=== PATIENT | male | born 1990 | race Caucasian/White ===

== ENCOUNTER 2023-06-20 16:42 | Emergency (ER) | payer OTHER, SELFPAY ==
[2023-06-20 17:04] VITALS: BP 122/76; PULSE 86; RESP 16; TEMP 36.8; O2SAT 98; BMI 28.3
--- NOTE | 2023-06-20 17:23 | PC.NURSE ---
R lower tooth broken for 6 months -- R lower jaw swelling last 1-2 weeks with some ear pain. denies any drainage in moutht or foul taste
[2023-06-20] MEDS: TRAMADOL HCL 50 MG TABLET PO (17:50)
[2023-06-20] MEDS: CLINDAMYCIN HCL 150 MG CAPSULE 450 MG PO (17:50)
--- NOTE | 2023-06-20 17:58 | ED_ITS ---
HPI - Dental/Oral General Chief complaint: Dental/Oral Stated complaint: DENTAL PAIN Time Seen by Provider: 06/20/23 17:30 Source: patient Mode of arrival: walk-in Limitations: no limitations History of Present Illness HPI Narrative: pt presents emergency department complaining of right jaw swelling. Patient states his had poor dentition for several months. He started having right lower molar tooth # 30-31 pain. He was taking amoxicillin 2 times a day that he had left over from previously and yesterday and today he started noted some swelling to the right jaw. He denies any sore throat, difficulty swallowing. Denies any difficulty opening his mouth. He denies any trauma. Denies any fever, or chills. Related Data Previous Rx's Medication Instructions Recorded clindamycin HCl 300 mg capsule 300 mg PO Q8H 10 days #30 caps 06/20/23 tramadol 50 mg tablet 50 mg PO TID PRN pain 3 days #10 06/20/23 tabs Allergies Allergy/AdvReac Type Severity Reaction Status Date / Time No Known Drug Allergies Allergy Verified 06/20/23 17:06 Review of Systems ROS Status of ROS 10 or more systems reviewed and unremarkable except as noted in history and below [facility] Social History Smoking status: Current every day smoker Exam Narrative Exam Narrative: General: The patient is comfortable, alert and oriented x3, well appearing, non toxic in no apparent distress. Head: Atraumatic and normocephalic. Eyes: Normal conjunctiva ENT: The oropharynx is normal. No pharyngeal erythema, uvular edema, tonsillar exudates, asymmetry or trismus. Uvula is midline. Mouth is normal to inspection with the exception of a pain on percussion of the tooth #30-31 and evidence of dental caries and dentin erosion. There is mild right jaw facial asymmetry. Induration noted, no erythema, no drainable abscess. No submandibular extension. Floor of the mouth is soft. No tenderness in the submental or submandibular space. No tongue elevation or deviation. No trismus, no gingivitis or other acute pathology. Airway is patent. Neck: The neck demonstrates normal range of motion. No meningeals signs are present. No stridor. No masses or lymphandenopathy noted. Respiratory: No acute distress, lungs are clear to auscultation, no wheezing, rhonchi, or rales noted. No stridor or retractions are noted. Cardiovascular: Regular rate and rhythm Skin: The skin exam shows no evidence of rashes Neuro: Alert and oriented x4, normal speech Lymphatic: No cervical lymphadenopathy Constitutional Vital Signs, click to edit/add: Last Vital Signs Temp 98.3 F 06/20/23 17:04 Pulse 86 06/20/23 17:04 Resp 16 06/20/23 17:04 BP 122/76 06/20/23 17:04 Pulse Ox 98 06/20/23 17:04 O2 Del Method Room Air 06/20/23 17:04 Course Vital Signs Vital signs: Vital Signs Temperature 98.3 F 06/20/23 17:04 Pulse Rate 86 06/20/23 17:04 Respiratory Rate 16 06/20/23 17:04 Blood Pressure 122/76 06/20/23 17:04 Pulse Oximetry 98 06/20/23 17:04 Oxygen Delivery Method Room Air 06/20/23 17:04 Temperature 98.3 F 06/20/23 17:04 Pulse Rate 86 06/20/23 17:04 Respiratory Rate 16 06/20/23 17:04 Blood Pressure 122/76 06/20/23 17:04 Pulse Oximetry 98 06/20/23 17:04 Oxygen Delivery Method Room Air 06/20/23 17:04 MDM - Dental/Oral MDM Narrative Medical decision making narrative: Patient is advised to take clindamycin, and completed treatment. He was given a prescription for Ultram. Orders was checked. Patient is nontoxic. Is advised follow-up with dentist. Discussed with patient if there is no improvement he is to return tomorrow if symptoms worsen. We discussed signs of peritonsillar abscess fever, difficulty swallowing, airway compromise. At this time the patient is without objective evidence of an acute process requiring hospitalization or inpatient management. The patient has remained hemodynamically stable. No additional indication for emergent studies at this time. I answered all questions. Discussed discharge instructions including standard anticipatory guidance and what should prompt a return to the emergency department, including if they get worse are not getting better or develops any new or concerning symptoms. I've given them specific time frame in which to follow-up, and who to follow-up with. The patient demonstrates understanding. Patient is nontoxic and stable for discharge with outpatient follow-up. This note was created with the assistance of a speech recognition program. Although the intention is to generate documents that actually reflects the content of the visit, no guarantees can be provided that every mistake has been identified and corrected by editing. Differential Diagnosis Differential diagnosis: Likely gingival abscess, dental caries and dental abscess Discharge Plan Discharge Chief Complaint: Dental/Oral Clinical Impression: Dental abscess Patient Disposition: Home, Self-Care Time of Disposition Decision: 17:36 Condition: Good Mode of Transportation: Private Vehicle Prescriptions / Home Meds: New clindamycin HCl 300 mg capsule 300 mg PO Q8H 10 Days Qty: 30 0RF tramadol 50 mg tablet 50 mg PO TID PRN (Reason: pain) 3 Days Qty: 10 0RF Instructions: Dental Abscess (ED) Stand Alone Forms: Portal Instructions Referrals: SILVIANO CABRERA APRN [Physician] - 1 week Physician,Non-Staff, MD [Primary Care Provider] - 1 week Discharge Date/Time: 06/20/23 18:03
--- NOTE | 2023-06-20 18:13 | PC.NURSE ---
eletronic prescriptions malfunctioned at this time -- pt gone before prescriptions are printed out. tried calling pt but no answer, unable to leave message
== END 2023-06-20 18:03 | disposition home or self-care (01) ==
PROVIDERS: Emergency Provider Emergency Medicine
DX: K04.7 Periapical abscess without sinus (principal); F17.210 Nicotine dependence, cigarettes, uncomplicated
CPT/HCPCS: 99283

== ENCOUNTER 2023-06-26 14:32 | Emergency (ER) | payer OTHER, SELFPAY ==
[2023-06-26 14:37] VITALS: BP 133/97; PULSE 77; RESP 16; TEMP 37.1; O2SAT 99; BMI 27.5
--- NOTE | 2023-06-26 14:49 | PC.NURSE ---
pt was seen here at [facility] ER for same dental issue. placed pt on ATB and tramadol for pain. pt states he's still taking clinda and has 1 tramadol left, but says it does nothing. strongly encouraged pt that he needs to make a dentist apt [place], since he still does not have one. pt has 3 broken teeth on R lower. pt has R sided jaw swelling, denies resp issues or trouble swallowing. Pt did have the same amount of swelling last week when he was first seen.
--- NOTE | 2023-06-26 14:51 | ED.DENTAL1 ---
HPI - Dental/Oral General Chief complaint: Dental/Oral Stated complaint: TOOTH PAIN Time Seen by Provider: 06/26/23 14:44 Source: patient Mode of arrival: walk-in Limitations: no limitations History of Present Illness HPI Narrative: patient returns complaining of the right lower jaw still being painful and swollen. He was evaluated in the ED one week ago and placed on 300mg Clinda TID and told to call a dentist. he did not. No new symptoms. he has several broken and carious teeth in the right lower jaw. No difficulty talking or swallowing and no fever or chills Related Data Previous Rx's Medication Instructions Recorded clindamycin HCl 300 mg capsule 300 mg PO Q8H 10 days #30 caps 06/20/23 tramadol 50 mg tablet 50 mg PO TID PRN pain 3 days #10 06/20/23 tabs clindamycin HCl 150 mg capsule 450 mg PO QID 10 days #120 caps 06/26/23 nabumetone 750 mg tablet 750 mg PO BID PRN pain #30 tabs 06/26/23 Allergies Allergy/AdvReac Type Severity Reaction Status Date / Time No Known Drug Allergies Allergy Verified 06/26/23 14:41 PFSH PFSH Social History Smoking status: Current every day smoker Exam Narrative Exam Narrative: General: The patient is comfortable, alert and oriented x3, well appearing, non toxic in no apparent distress. afebrile Head: Atraumatic and normocephalic. Eyes: Normal conjunctiva ENT: The oropharynx is normal. No pharyngeal erythema, uvular edema, tonsillar exudates, asymmetry or trismus. Uvula is midline. There are several missing and carious teeth. he has pain on percussion of the tooth #30 & 31 and evidence of dental caries. There is mild right facial asymmetry but I do not see focal abscess formation on the inside mucosa/gumline. Floor of the mouth is soft. No tenderness in the submental or submandibular space. No tongue elevation or deviation. The patient has no evidence of periapical abscess, gingivitis or other acute pathology. Airway is patent. Neck: The neck demonstrates normal range of motion. No meningeals signs are present. No stridor. No masses or lymphandenopathy noted. Respiratory: No acute distress, lungs are clear to auscultation, no wheezing, rhonchi, or rales noted. No stridor or retractions are noted. Cardiovascular: Regular rate and rhythm Skin: The skin exam shows no evidence of rashes Neuro: Alert and oriented x4, normal speech Lymphatic: No cervical lymphadenopathy Constitutional Vital Signs, click to edit/add: Last Vital Signs Temp 98.7 F 06/26/23 14:37 Pulse 77 06/26/23 14:37 Resp 16 06/26/23 14:37 BP 133/97 H 06/26/23 14:37 Pulse Ox 99 06/26/23 14:37 O2 Del Method Room Air 06/26/23 14:37 Course Vital Signs Vital signs: Vital Signs Temperature 98.7 F 06/26/23 14:37 Pulse Rate 77 06/26/23 14:37 Respiratory Rate 16 06/26/23 14:37 Blood Pressure 133/97 H 06/26/23 14:37 Pulse Oximetry 99 06/26/23 14:37 Oxygen Delivery Method Room Air 06/26/23 14:37 Temperature 98.7 F 06/26/23 14:37 Pulse Rate 77 06/26/23 14:37 Respiratory Rate 16 06/26/23 14:37 Blood Pressure 133/97 H 06/26/23 14:37 Pulse Oximetry 99 06/26/23 14:37 Oxygen Delivery Method Room Air 06/26/23 14:37 MDM - Dental/Oral MDM Narrative Medical decision making narrative: patient states his symptoms are unchanged since his last week. I did note that he was being dosed with a lower amount of clindamycin. Additionally he has not called to schedule any kind of follow-up with a dentist or oral surgeon. Furthermore he has not been taking any anti-inflammatory pain medicine and was not given any topical dental anesthetic paste. The patient was discharged home with 450 mg dosing of clindamycin, prescription for Relafen and was dispensed topical dental anesthetic paste in the emergency department. I reiterated the importance of following up with the dentist and I encouraged him to call the twenty-four hour dental Hotline as soon as he gets home home - Medical Records Attestation: I reviewed the patient's medical records. Medical records narrative: I reviewed the patient's emergency department chart from one week ago. The patient was discharged home with a prescription for clindamycin but only 300 mg dosing. He said he had been taking this. he was not given any topical dental paste or prescribed any anti-inflammatory pain medicine. Discharge Plan Discharge Chief Complaint: Dental/Oral Clinical Impression: Dental caries, Toothache, Dental abscess, Fracture of tooth Patient Disposition: Home, Self-Care Time of Disposition Decision: 14:58 Prescriptions / Home Meds: New clindamycin HCl 150 mg capsule 450 mg PO QID 10 Days Qty: 120 0RF nabumetone 750 mg tablet 750 mg PO BID PRN (Reason: pain) Qty: 30 0RF No Action clindamycin HCl 300 mg capsule 300 mg PO Q8H 10 Days Qty: 30 0RF tramadol 50 mg tablet 50 mg PO TID PRN (Reason: pain) 3 Days Qty: 10 0RF Instructions: Dental Abscess (ED), Toothache (ED) Additional Instructions: REFER TO DENTIST Stand Alone Forms: Portal Instructions
[2023-06-26] MEDS: BENZOCAINE 30 ML, lidocaine HCL 15 ML MM (15:14)
== END 2023-06-26 15:14 | disposition home or self-care (01) ==
PROVIDERS: Emergency Provider Emergency Medicine
DX: K04.7 Periapical abscess without sinus (principal); S02.5XXA Fracture of tooth (traumatic), initial encounter for closed fracture; K02.9 Dental caries, unspecified; K08.89 Other specified disorders of teeth and supporting structures; X58.XXXA Exposure to other specified factors, initial encounter; F17.210 Nicotine dependence, cigarettes, uncomplicated
CPT/HCPCS: 99283